=== PATIENT | female | born 1990 | race African-American/Black ===

== ENCOUNTER 2020-10-05 13:09 | Inpatient (IN) | payer MEDICAID ==
[~2020-10-05] VITALS: Ht 165.1 cm; Wt 127.0 kg
[2020-10-05] MEDS ORDERED: DEXAMETHASONE 10 MG/ML VIAL IV ONE (13:15)
[2020-10-05] MEDS ORDERED: CEFTRIAXONE 1 G PREMIX 50 ML IV ONE (13:15)
[2020-10-05] MEDS ORDERED: AZITHROMYCIN 500 MG in DEXT 5% WATER 250 ML IV ONE (13:15)
[2020-10-05] MEDS ORDERED: ACETAMINOPHEN 325MG TABLET PO ONE (13:45)
[2020-10-05 14:30] LABS: BG BASE EXCESS 1.1 mmol/L (-2.0-2.0); BG CARBOXYHEMOGLOBIN 0.3 % (0.5-1.5); BG DEOXYHEMOGLOBIN 1.3 % (0.0-5.0); BG FRACTION INSPIRED OXYGEN 100; BG HCO3 ACT 27.4 mmol/L (22.0-26.0); BG METHEMOGLOBIN 0.3 % (0.0-1.5); BG OXYGEN SATURATION 98.7 % (92.0-98.5); BG OXYHEMOGLOBIN 98.1 % (94.0-97.0); BG PCO2 52.1 mmHg (35.0-45.0); BG PH 7.339 (7.350-7.450); BG PO2 166.2 mmHg (75.0-100.0); BG SAMPLE SITE RIGHT RADIAL; BG TOTAL RESPIRATORY RATE 31 b/min; BG VENT MODE MASK - BIPAP
[2020-10-05 14:40] LABS: CHLORIDE 90 mEq/L (98-107)
[2020-10-05 14:42] LABS: D-DIMER 1.33 mg/L FEU (<0.50); INR 1.4; PROTHROMBIN TIME 14.2 sec (9.6-11.0)
[2020-10-05 14:44] LABS: BASOPHILS % 0.4 % (0.0-2.0); HEMATOCRIT. 27.9 % (36.0-48.0); HEMOGLOBIN. 8.4 g/dL (12.0-16.0); LYMPHOCYTES % 9.7 % (20.0-50.0); MEAN CORPUSCULAR HEMOGLOBIN 22.2 pg (28.0-32.0); MEAN CORPUSCULAR VOLUME 73.6 fL (81.0-99.0); MEAN PLATELET VOLUME 9.8 fl (7.4-10.4); MONOCYTES % 4.7 % (2.0-8.0); NEUTROPHILS % 85.2 % (40.0-76.0); PLATELET 346 x1000/uL (130-400); RED BLOOD CELL COUNT 3.79 mill/uL (4.2-5.4)
[2020-10-05 14:52] LABS: CREATINE KINASE 650 IU/L (26-192)
[2020-10-05 14:54] LABS: HCG SCREEN NEGATIVE
[2020-10-05] MEDS: INSULIN REGULAR (HUMULIN R) 300UNITS/3ML VIAL IV ONE ×2 (15:09→15:22)
[2020-10-05 16:29] LABS: PLATELET ESTIMATE NORMAL
[2020-10-05 17:00] LABS: CLARITY URINE CLEAR (CLEAR); COLOR URINE DARK YELLOW (YELLOW); KETONES URINE NEGATIVE (NEGATIVE); LEUKOCYTE ESTERASE URINE NEGATIVE (NEGATIVE); NITRITE URINE NEGATIVE (NEGATIVE); OCCULT BLOOD URINE NEGATIVE (NEGATIVE); PH URINE 5.5 (4.5-8.0); PROTEIN URINE 1+ (NEGATIVE); SPECIFIC GRAVITY URINE 1.022 (1.005-1.030)
[2020-10-05] MEDS ORDERED: DOCUSATE SODIUM 100MG CAPSULE PO PRN (18:15)
[2020-10-05] MEDS ORDERED: GUAIFENESIN 200MG/10ML SUGAR FREE UDC PO PRN (18:15)
[2020-10-05] MEDS ORDERED: LORAZEPAM 2MG/ML CPJ IV PRN (18:15)
[2020-10-05] MEDS ORDERED: CLONIDINE 0.1MG TABLET PO PRN (18:15)
[2020-10-05] MEDS ORDERED: CEFTRIAXONE 1 G PREMIX 50 ML IV SCH (18:15)
[2020-10-05] MEDS ORDERED: FUROSEMIDE 40MG/4ML VIAL IVP NR (19:00)
[2020-10-05] MEDS ORDERED: ALBUTEROL 6.7GM HFA INHALER ORI PRN (19:00)
[2020-10-05] MEDS: ENOXAPARIN 40MG/0.4ML SYR SUBCUT SCH (21:25)
[2020-10-05 22:44] VITALS: BP 135/75
[2020-10-05 22:45] VITALS: BP 135/75
[2020-10-05 23:00] VITALS: BP 124/88
[2020-10-05 23:30] VITALS: BP 115/76
[2020-10-05] MEDS ORDERED: DEXTROSE 50% WATER 50ML SYRINGE IV PRN (23:45)
[2020-10-06] VITALS (30 sets, daily range): BP systolic 109–158; BP diastolic 71–103
[2020-10-06 05:57] LABS: INR 1.2; PROTHROMBIN TIME 12.5 sec (9.6-11.0)
[2020-10-06 05:58] LABS: CHLORIDE 103 mEq/L (98-107)
[2020-10-06] MEDS ORDERED: FURO-151 PO (05:58)
[2020-10-06 06:05] LABS: BASOPHILS % 0.2 % (0.0-2.0); EOSINOPHILS % 0.1 % (0.0-5.0); HEMATOCRIT. 31.2 % (36.0-48.0); HEMOGLOBIN. 9.5 g/dL (12.0-16.0); LYMPHOCYTES % 10.2 % (20.0-50.0); MEAN CORPUSCULAR HEMOGLOBIN 22.2 pg (28.0-32.0); MEAN PLATELET VOLUME 10.6 fl (7.4-10.4); MONOCYTES % 6.3 % (2.0-8.0); NEUTROPHILS % 83.2 % (40.0-76.0); PLATELET 301 x1000/uL (130-400); RED BLOOD CELL COUNT 4.28 mill/uL (4.2-5.4); RED CELL DISTRIBUTION WIDTH 25.7 % (11.6-14.6)
[2020-10-06] MEDS ORDERED: INSLIS SUBCUT (06:13)
[2020-10-06] MEDS ORDERED: SERT25TA MT (06:13)
[2020-10-06] MEDS ORDERED: ALBU05 IH (06:13)
[2020-10-06] MEDS: BLOOD SUGAR DIAGNOSTIC STRIP TEST SCH ×4 (06:24→21:51)
[2020-10-06] MEDS: INSULIN LISPRO 100 UNITS/ML SUBCUT SCH ×4 (06:24→21:00)
[2020-10-06] MEDS ORDERED: INSU100I24 SQ (06:25)
[2020-10-06] MEDS: ASCORBIC ACID 500 MG TABLET PO SCH (09:01)
[2020-10-06] MEDS: DEXAMETHASONE 4MG TABLET PO SCH (09:01)
[2020-10-06] MEDS: ASPIRIN 81MG EC TABLET PO SCH (09:01)
[2020-10-06] MEDS: ZINC SULFATE 220 MG ( 50 ) CAPSULE PO SCH (09:01)
[2020-10-06] MEDS: ENOXAPARIN 40MG/0.4ML SYR SUBCUT SCH ×2 (09:02→21:51)
[2020-10-06] MEDS: CEFTRIAXONE 1,000 MG in DEXTROSE 5% WATER 50 ML IV SCH (09:02)
[2020-10-06] MEDS: AZITHROMYCIN 500 MG in DEXT 5% WATER 250 ML IV SCH (10:03)
[2020-10-06] MEDS ORDERED: FUROSEMIDE 20MG/2ML VIAL IVP NR (10:45)
[2020-10-06] MEDS ORDERED: FUROSEMIDE 40MG TABLET PO SCH (11:30)
[2020-10-06] MEDS ORDERED: SERTRALINE HCL 25MG TABLET PO SCH (11:30)
[2020-10-06] MEDS: SERTRALINE HCL 25MG TABLET PO SCH (12:19)
[2020-10-06] MEDS: ACETAMINOPHEN 325MG TABLET PO PRN (14:22)
[2020-10-06] MEDS ORDERED: VANCOMYCIN 1 G PREMIX 200 ML IV NR (22:45)
[2020-10-07 00:33] VITALS: BP 174/98
[2020-10-07 04:00] VITALS: BP 153/71
[2020-10-07] MEDS: ACETAMINOPHEN 325MG TABLET PO PRN ×2 (05:23→09:56)
[2020-10-07] MEDS: BLOOD SUGAR DIAGNOSTIC STRIP TEST SCH ×4 (07:32→21:00)
[2020-10-07] MEDS: INSULIN LISPRO 100 UNITS/ML SUBCUT SCH ×4 (07:33→21:00)
[2020-10-07 08:00] VITALS: BP 113/81
[2020-10-07] MEDS: ASPIRIN 81MG EC TABLET PO SCH (09:55)
[2020-10-07] MEDS: FUROSEMIDE 40MG TABLET PO SCH (09:56)
[2020-10-07] MEDS: SERTRALINE HCL 25MG TABLET PO SCH (09:56)
[2020-10-07] MEDS: DEXAMETHASONE 4MG TABLET PO SCH (09:56)
[2020-10-07] MEDS: CEFTRIAXONE 1,000 MG in DEXTROSE 5% WATER 50 ML IV SCH (09:57)
[2020-10-07] MEDS: ZINC SULFATE 220 MG ( 50 ) CAPSULE PO SCH (09:57)
[2020-10-07] MEDS: ASCORBIC ACID 500 MG TABLET PO SCH (09:57)
[2020-10-07] MEDS: AZITHROMYCIN 500 MG in DEXT 5% WATER 250 ML IV SCH (10:59)
[2020-10-07 12:00] VITALS: BP 147/87
[2020-10-07] MEDS: ENOXAPARIN 40MG/0.4ML SYR SUBCUT SCH ×2 (12:37→21:59)
[2020-10-07 16:00] VITALS: BP 150/86
[2020-10-07 20:00] VITALS: BP 139/97
[2020-10-08] VITALS: BP 141/80
[2020-10-08 04:00] VITALS: BP 134/89
[2020-10-08] MEDS: BLOOD SUGAR DIAGNOSTIC STRIP TEST SCH ×4 (07:41→21:22)
[2020-10-08] MEDS: INSULIN LISPRO 100 UNITS/ML SUBCUT SCH ×4 (07:41→21:00)
[2020-10-08 08:00] VITALS: BP 131/91
[2020-10-08] MEDS: DEXAMETHASONE 4MG TABLET PO SCH (08:37)
[2020-10-08] MEDS: ASCORBIC ACID 500 MG TABLET PO SCH (08:37)
[2020-10-08] MEDS: CEFTRIAXONE 1,000 MG in DEXTROSE 5% WATER 50 ML IV SCH (08:37)
[2020-10-08] MEDS: FUROSEMIDE 40MG TABLET PO SCH (08:37)
[2020-10-08] MEDS: ASPIRIN 81MG EC TABLET PO SCH (08:38)
[2020-10-08] MEDS: SERTRALINE HCL 25MG TABLET PO SCH (08:38)
[2020-10-08] MEDS: ZINC SULFATE 220 MG ( 50 ) CAPSULE PO SCH (08:40)
[2020-10-08] MEDS: ENOXAPARIN 40MG/0.4ML SYR SUBCUT SCH ×2 (08:41→21:22)
[2020-10-08] MEDS: ONDANSETRON HCL 4MG/2ML INJ IV PRN ×2 (10:00→21:28)
[2020-10-08] MEDS: AZITHROMYCIN 500 MG in DEXT 5% WATER 250 ML IV SCH (10:00)
[2020-10-08 12:00] VITALS: BP 171/89
[2020-10-08 16:00] VITALS: BP 152/90
[2020-10-08 20:00] VITALS: BP 131/83
[2020-10-09] VITALS: BP 142/81
[2020-10-09 04:00] VITALS: BP 133/71
[2020-10-09] MEDS: INSULIN LISPRO 100 UNITS/ML SUBCUT SCH ×2 (06:10→13:10)
[2020-10-09] MEDS: BLOOD SUGAR DIAGNOSTIC STRIP TEST SCH ×2 (06:10→12:40)
[2020-10-09 08:00] VITALS: BP 121/79
[2020-10-09] MEDS: ASCORBIC ACID 500 MG TABLET PO SCH (09:04)
[2020-10-09] MEDS: FUROSEMIDE 40MG TABLET PO SCH (09:04)
[2020-10-09] MEDS: SERTRALINE HCL 25MG TABLET PO SCH (09:04)
[2020-10-09] MEDS: ASPIRIN 81MG EC TABLET PO SCH (09:04)
[2020-10-09] MEDS: ENOXAPARIN 40MG/0.4ML SYR SUBCUT SCH (09:05)
[2020-10-09] MEDS: ZINC SULFATE 220 MG ( 50 ) CAPSULE PO SCH (09:05)
[2020-10-09] MEDS: CEFTRIAXONE 1,000 MG in DEXTROSE 5% WATER 50 ML IV SCH (09:07)
[2020-10-09] MEDS: DEXAMETHASONE 4MG TABLET PO SCH (09:07)
[2020-10-09] MEDS: AZITHROMYCIN 500 MG in DEXT 5% WATER 250 ML IV SCH (09:40)
[2020-10-09 12:00] VITALS: BP 146/92
[2020-10-09 14:36] VITALS: BP 146/92
== END 2020-10-09 15:55 | disposition home or self-care (01) | DRG 720 ==
LOC: ER 13:27 → EDBD 14:55 → MICUSO 14:55 → 7WST 10-06 14:06
PROVIDERS: ADMIT Hospitalist; ATTEND Hospitalist
PROC: 5A09357 Assistance with Respiratory Ventilation, Less than 24 Consecutive Hours, Continuous Positive Airway Pressure (ICD-10-PCS; principal; 2020-10-05)
DX: A41.89 Other specified sepsis (principal); U07.1 COVID-19; J96.01 Acute respiratory failure with hypoxia; I50.41 Acute combined systolic (congestive) and diastolic (congestive) heart failure; I11.0 Hypertensive heart disease with heart failure; J12.82 Pneumonia due to coronavirus disease 2019; D64.9 Anemia, unspecified; F17.200 Nicotine dependence, unspecified, uncomplicated; J44.0 Chronic obstructive pulmonary disease with (acute) lower respiratory infection; E87.2 Acidosis; E66.01 Morbid (severe) obesity due to excess calories; G93.40 Encephalopathy, unspecified; Z68.42 Body mass index [BMI] 45.0-49.9, adult
CPT/HCPCS: 36415; 36600; 71045; 80053; 81003; 82010; 82375; 82550; 82728; 82805; 82962; 83036; 83605; 83615; 83880; 83930; 83935; 84145; 84484; 84703; 85025; 85379; 85384; 86140; 87426; 93005; 93970; 94660; 99291; C1893; J0456; J0696; J1100; J1650; J1815; J1940; J2405; J3370; J7040; J7060; J8540; U0003; U0005